=== PATIENT | female | born 1990 | race Caucasian/White ===

== ENCOUNTER 2021-10-03 07:17 | Emergency (ER) | payer OTHER ==
[~2021-10-03] VITALS: Ht 167.6 cm; Wt 127.0 kg
[2021-10-03] MEDS ORDERED: SYNTHROID100 MCG (07:38)
[2021-10-03] MEDS ORDERED: RESTORIL30 M1 (07:38)
== END 2021-10-03 14:15 | disposition home or self-care (01) ==
LOC: ER 07:17
DX: R10.32 Left lower quadrant pain (principal); R19.7 Diarrhea, unspecified